=== PATIENT | male | born 1980 | race African-American/Black ===

== ENCOUNTER 2018-11-06 16:59 | Inpatient (IN) | payer OTHER ==
[2018-11-06] MEDS ORDERED: KETOROLAC 30 MG/ML 1 ML VIAL IVP STA (17:22)
--- NOTE | 2018-11-06 17:25 | ED ---
Chest Pain HPI - General Chief Complaint: Chest Pain Stated Complaint: chest pain Time Seen by Provider: 11/06/18 17:10 Source: patient, RN notes reviewed Mode of arrival: wheelchair Limitations: no limitations - History of Present Illness Initial Comments: This is a 37-year-old male with a benign past medical history but a personal family history of heart disease his dad that he is 65 he's not sure when his heart disease started as he was adopted and did not meet his real father and told to before he passed on. He states he did have an on-and-off for the last several months left-sided chest pain on and off symptoms chills heavy today he presents with complaints of left-sided chest pain it radiates to his arm. 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 He does not recall a particular incidence the may have hurt his chest or arm. He is a former smoker he quit several months ago. He denies any other fevers chills nausea vomiting sweats or other symptoms at this time. MD Complaint: chest pain - Related Data Home Medications Medication Instructions Recorded Confirmed No Known Home Medications 11/06/18 11/06/18 Allergies Allergy/AdvReac Type Severity Reaction Status Date / Time No Known Allergies Allergy Verified 11/06/18 17:22 Review of Systems ROS Statement: Those systems with pertinent positive or pertinent negative responses have been documented in the HPI. ROS Other: All systems not noted in ROS Statement are negative. EKG Findings - EKG Results: EKG: interpreted by CLIFTON, sinus rhythm (Sinus rhythm of 82. [place] interval 188 QRS duration 108 QT since QTC 380/[address]-T wave changes.) Past Medical History Past Medical History: No Reported History History of Any Multi-Drug Resistant Organisms: None Reported Past Surgical History: No Surgical Hx Reported Past Psychological History: No Psychological Hx Reported Smoking Status: Former smoker Past Alcohol Use History: Occasional Past Drug Use History: Marijuana General Exam - General Exam Comments Initial Comments: This is a well-developed well-nourished awake alert oriented 3 male Limitations: no limitations General appearance: alert, in no apparent distress Head exam: Present: atraumatic, normocephalic, normal inspection Eye exam: Present: normal appearance, PERRL, EOMI. Absent: scleral icterus, conjunctival injection, periorbital swelling ENT exam: Present: normal exam, mucous membranes moist Neck exam: Present: normal inspection, full ROM, other (No stridor JVD or bruits). Absent: tenderness, meningismus, lymphadenopathy Respiratory exam: Present: normal lung sounds bilaterally, chest wall tenderness (Tennis palpation over the left costal sternal margin no step-off or crepitation). Absent: respiratory distress, wheezes, rales, rhonchi, stridor Cardiovascular Exam: Present: regular rate, normal rhythm, normal heart sounds. Absent: systolic murmur, diastolic murmur, rubs, gallop, clicks GI/Abdominal exam: Present: soft, normal bowel sounds. Absent: distended, tenderness, guarding, rebound, rigid Extremities exam: Present: normal inspection, full ROM, normal capillary refill. Absent: tenderness, pedal edema, joint swelling, calf tenderness Back exam: Present: normal inspection Neurological exam: Present: alert, oriented X3, CN II-XII intact Psychiatric exam: Present: normal affect, normal mood Skin exam: Present: warm, dry, intact, normal color. 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 ] Respiratory 18 18 Rate Blood Pressure 149/101 138/93 O2 Sat by Pulse 98 97 Oximetry 11/06/18 11/06/18 11/06/18 18:11 18:36 19:33 Temperature 97.8 F Pulse Rate 75 89 69 Pulse Rate [ Project Landscape Architect ] Respiratory 18 18 18 Rate Blood Pressure 134/94 130/88 143/97 O2 Sat by Pulse 97 95 99 Oximetry 11/06/18 20:22 Temperature Pulse Rate 72 Pulse Rate [ Project Landscape Architect ] Respiratory 22 Rate Blood Pressure 151/87 O2 Sat by Pulse 99 Oximetry - Reevaluation(s) Reevaluation #1: 11/06/18 21:52 Repeat EKG shows sinus rhythm a 70 186 years duration 108 daily since QTC 392/423 some evidence of incomplete left bundle-branch block configuration appears be consistent with a first EKG Chest Pain MDM - MDM I did review the imaging and report no acute findings. Patient persists in having chest pain though it does appear to be noncardiac. I did discuss case with him and Dr. Plata who did come the emergency department see the patient he will be admitted for further evaluation. Disposition Clinical Impression: Atypical chest pain Disposition: ADMITTED IP TO THIS HOSP Condition: Fair Referrals: None,Stated [Primary Care Provider] - 1-2 days
[2018-11-06 17:33] LABS: Basophils % (A) 1 %; Eosinophils # (A) 0.1 k/uL (0-0.7); Eosinophils % (A) 2 %; HCT 50.4 % (39.0-53.0); HGB 17.2 gm/dL (13.0-17.5); Lymphocytes # (A) 1.7 k/uL (1.0-4.8); Lymphocytes % (A) 22 %; Mean Platelet Volume 6.9; Monocytes # (A) 0.4 k/uL (0-1.0); Monocytes % (A) 6 %; Neutrophils # (A) 5.4 k/uL (1.3-7.7); Neutrophils % (A) 69 %; Platelet Count 335 k/uL (150-450); RBC 5.73 m/uL (4.30-5.90); RDW 14.6 % (11.5-15.5); WBC 7.8 k/uL (3.8-10.6)
[2018-11-06 17:46] LABS: D-Dimer <0.17 mg/L FEU (<0.60); INR 0.9 (<1.2); Partial Thromboplastin Time 23.1 sec (22.0-30.0); Prothrombin Time 9.8 sec (9.0-12.0)
[2018-11-06 17:48] LABS: ALT 58 U/L (21-72); AST 43 U/L (17-59); African American GFR (CKD) >90 (>60 ml/min/1.73 sqM); Albumin 5.2 g/dL (3.5-5.0); Alkaline Phosphatase 101 U/L (38-126); Anion Gap 13 mmol/L; Blood Urea Nitrogen 13 mg/dL (9-20); Calcium 10.3 mg/dL (8.4-10.2); Carbon Dioxide 23 mmol/L (22-30); Chloride 106 mmol/L (98-107); Creatine Kinase 227 U/L (55-170); Glucose 112 mg/dL (74-99); Magnesium 2.2 mg/dL (1.6-2.3); Potassium 4.2 mmol/L (3.5-5.1); Sodium 142 mmol/L (137-145); Total Bilirubin 0.4 mg/dL (0.2-1.3); Total Protein 8.9 g/dL (6.3-8.2)
--- NOTE | 2018-11-06 17:50 | XR ---
EXAMINATION TYPE: XR chest 2V DATE OF EXAM: 11/06/2018 COMPARISON: None HISTORY: 37-year-old male with chest pain TECHNIQUE: PA and lateral views FINDINGS: Heart is normal size. Aorta and pulmonary vasculature are within normal limits. Mild interstitial pro minence without consolidation or pleural effusion. IMPRESSION: Mild interstitial prominence could reflect bronchitis or asthma.
[2018-11-06] MEDS ORDERED: NITROGLYCERIN SL TABS 0.4 MG TAB SUBLINGUAL STA (18:09)
[2018-11-06] MEDS ORDERED: SODIUM CHLORIDE 0.9% 1,000 ML IV STA (18:38)
[2018-11-06] MEDS ORDERED: ORPHENADRINE 30 MG/ML 2 ML VIAL IVP STA (18:38)
[2018-11-06] MEDS ORDERED: methylPREDNISolone SOD SUCCI 125 MG/2 ML VIAL IV STA (20:05)
[2018-11-06] MEDS ORDERED: HYDROmorphone 1 MG/ML 1 ML SYRINGE IVP STA (20:05)
[2018-11-06] MEDS ORDERED: MAG HYDROX/AL HYDROX/SIMETH 30 ML, HYOSCYAMINE ELIXIR 10 ML, CIMETIDINE HCL 300 MG, LID... PO STA ×4 (21:33)
[2018-11-06] MEDS ORDERED: HEPARIN SODIUM,PORCINE 5,000 UNIT/ML 1 ML VIAL IV ONE (22:57)
[2018-11-06] MEDS ORDERED: NITROGLYCERIN SL TABS 0.4 MG TAB SUBLINGUAL PRN (22:57)
[2018-11-06] MEDS ORDERED: HEPARIN SOD,PORK IN 0.45% NACL 25,000 UNIT in 0.45% NACL 1 250ML.BAG IV SCH (23:00)
[2018-11-06] MEDS: SODIUM CHLORIDE 0.9% 1,000 ML IV SCH (23:13)
[2018-11-06 23:50] VITALS: BMI 31.5
[2018-11-06] MEDS: NITROGLYCERIN OINT 1 INCH/GM PACKET TOPICAL SCH (23:54)
--- NOTE | 2018-11-07 00:33 | P.HPIM ---
History of Present Illness H&P Date: 11/06/18 Chief Complaint: Chest pain 37-year-old male with history of IBS Patient presented to the hospital with complaint of chest pain he reports that for the past year he's been having left-sided chest discomfort described it as sharp pain on the left side of his chest he never gave it any attention goes away on its own however today while he was watching TV he experienced pain 8 out of 10 in severity radiating to the left arm was associated with some nausea but no vomiting he felt faint and weak denies any shortness of breath denies any palpitations but reports some chills he denies any coughing patient reports that pain increases with deep breath and moving around. Patient never had any cardiac episodes in the past. He reports that his is adopted however he met his dad who was 65 years old and reported history of coronary artery disease and possible CABG patient reports that his dad couple weeks ago from heart attack Patient otherwise denies any fevers denies any vomiting denies any abdominal pain denies any GI bleeding or belly pain. In the ED initial workup was unremarkable EKG showed no acute ST changes Troponins negative Chest x-ray overall unremarkable Patient quit smoking 3 months ago he occasionally drinks Patient will be admitted for chest pain to rule out acute coronary syndrome Review of Systems Pertinent positives as noted in HPI. All other systems were reviewed and are negative Past Medical History Past Medical History: No Reported History History of Any Multi-Drug Resistant Organisms: None Reported Past Surgical History: No Surgical Hx Reported Past Anesthesia/Blood Transfusion Reactions: No Reported Reaction Past Psychological History: No Psychological Hx Reported Smoking Status: Former smoker Past Alcohol Use History: Occasional Past Drug Use History: Marijuana - Past Family History Father Family Medical History: Myocardial Infarction ([place]) Additional Family Medical History / Comment(s): 2014 of cardiac arrest. had open heart in the past Medications and Allergies Home Medications Medication Instructions Recorded Confirmed Type No Known Home Medications 11/06/18 11/06/18 History Allergies Allergy/AdvReac Type Severity Reaction Status Date / Time No Known Allergies Allergy Verified 11/06/18 17:22 Physical Exam Vitals: Vital Signs Temp Pulse Pulse Resp BP BP Pulse Ox 11/06/18 23:42 98.0 F 75 18 162/80 96 11/06/18 20:22 72 22 151/87 99 11/06/18 19:33 97.8 F 69 18 143/97 99 11/06/18 18:36 89 18 130/88 95 11/06/18 18:11 75 18 134/94 97 11/06/18 17:18 87 18 138/93 97 11/06/18 17:16 82 11/06/18 17:02 97.9 F 96 18 149/101 98 Intake and Output 11/06/18 11/06/18 11/07/18 14:59 22:59 06:59 Other: # Voids 1 Weight 113.398 kg Constitutional: No acute distress, conversant, pleasant Eyes: Anicteric sclerae, moist conjunctiva, no lid-lag Pupils equal round reactive to light ENMT: NC/AT Oropharynx clear, no erythema, or exudates Neck: Supple, FROM, no masses, or JVD No carotid bruits No thyromegaly Lungs: Clear to auscultation Clear to percussion Normal respiratory effort, no accessory muscle use Cardiovascular: Heart regular in rate and rhythm, , pain is not re producible upon palpation of the chest No murmurs, gallops, or rubs No peripheral edema Abdominal: Soft Nontender, no guarding, rebound or rigidity Abdomen moving with respiration Normoactive bowel sounds No hepatomegaly, No splenomegaly No palpable mass No abdominal wall hernia noted Skin: Normal temperature, tone, texture, turgor No induration No subcutaneous nodules No rash, lesions No ulcers Extremities: No digital cyanosis No clubbing Pedal pulses intact and symmetrical Radial pulses intact and symmetrical No calf tenderness Psychiatric: Alert and oriented to person, place and time Appropriate affect fair judgment Neuro Muscles Strength 5/5 in all 4 extremities Sensation to light touch grossly present throughout Cranial nerves II-XII grossly intact No focal sensory deficits Lymphatics: no palpable cervical or supraclavicular , or inguinal lymph nodes Results CBC & Chem 7: 11/06/18 17:15 11/06/18 17:15 Labs: Abnormal Lab Results - Last 24 Hours (Table) 11/06/18 Range/Units 17:15 Glucose 112 H (74-99) mg/dL Calcium 10.3 H (8.4-10.2) mg/dL Creatine Kinase 227 H (55-170) U/L Total Protein 8.9 H (6.3-8.2) g/dL Albumin 5.2 H (3.5-5.0) g/dL Thrombosis Risk Factor Assmnt - Choose All That Apply Any of the Below Risk Factors Present?: Yes Each Factor Represents 1 point: Obesity (BMI >25) Other Risk Factors: No Other congenital or acquired thrombophilia - If yes, enter type in comment: No Thrombosis Risk Factor Assessment Total Risk Factor Score: 1 Thrombosis Risk Factor Assessment Level: Low Risk Assessment and Plan Assessment: 37-year-old male no significant past medical history admitted under observation with anticipated length of stay less than 2 midnights due to chest pain to rule out acute coronary syndrome Plan: Atypical chest pain rule out acute coronary syndrome Trend troponins Cardiac enzymes color television console monitor Cardiology consult Pain control Aspirin Patient was started on heparin drip in the ED CODE STATUS: Full code Discussed with: Patient, ER, RN Anticipated length of stay less than [address]: Home A total of 60 minutes was spent on the care of this complex patient more than 50% of the time was spent in counseling and care coordination.
[2018-11-07] MEDS: HYDROmorphone 1 MG/ML 1 ML SYRINGE IVP PRN ×3 (01:20→08:36)
[2018-11-07 06:01] LABS: Cholesterol 229 mg/dL (<200); HDL Cholesterol 52 mg/dL (40-60); LDL Cholesterol,Calculated 167 mg/dL (0-99); Triglycerides 50 mg/dL (<150)
[2018-11-07] MEDS: NITROGLYCERIN OINT 1 INCH/GM PACKET TOPICAL SCH (06:23)
[2018-11-07] MEDS ORDERED: ASPIRIN 325 MG TAB PO SCH (09:00)
[2018-11-07] MEDS: METOPROLOL TARTRATE 12.5 MG TAB PO SCH (10:20)
[2018-11-07] MEDS: amLODIPine 2.5 MG TAB PO SCH (10:20)
--- NOTE | 2018-11-07 15:34 | P.PN ---
Subjective Progress Note Date: 11/07/18 Patient seen and examined and follow-up, continues to complain of left-sided chest pressure, denies any shortness of breath. Patient reports family history of premature heart disease. EKG negative for any suggestion of any acute ischemia, troponins are negative 3. Blood pressure has been elevated otherwise no acute events overnight Objective - Vital Signs Vital signs: Vital Signs Temp 98.3 F 11/07/18 11:47 Pulse 87 11/07/18 11:47 Resp 17 11/07/18 12:00 BP 157/79 11/07/18 11:47 Pulse Ox 92 L 11/07/18 11:47 Intake & Output 11/06/18 11/07/18 11/07/18 18:59 06:59 18:59 Intake Total 65.167 Balance 65.167 Weight 113.398 kg 117.4 kg Intake: Intake, IV Titration 65.167 Amount Heparin Sod,Pork in 0.45% 65.167 NaCl 25,000 unit In 0.45 % NaCl 1 250ml.bag @ 8 UNITS/KG/HR 9.072 mls/hr IV .Q24H [facility] Rx#: [id number] Other: Voiding Method Toilet Toilet # Voids 1 - Exam Constitutional: No acute distress, conversant, pleasant Eyes: Anicteric sclerae, moist conjunctiva, no lid-lag, PERRLA ENMT: NC/AT,Oropharynx clear, no erythema, exudates Neck:Supple, FROM, no masses, or JVD, No carotid bruits; No thyromegaly Lungs: Clear to auscultation, Clear to percussion, Normal respiratory effort, no accessory muscle use Cardiovascular: Heart regular in rate and rhythm, No murmurs, gallops, or rubs no peripheral edema Abdominal: Soft Nontender, nom distended, no guarding, no rebound or rigidity, Normoactive bowel sounds No hepatomegaly, No splenomegaly, No palpable mass No abdominal wall hernia noted Skin: Normal temperature, tone, texture, turgor, No induration No subcutaneous nodules, No rash, lesions, No ulcers Extremities:No digital cyanosis No clubbing, Pedal pulses intact and symmetrical Radial pulses intact and symmetrical Normal gait and station, No calf tenderness Psychiatric: Alert and oriented to person, place and time, Appropriate affect Intact judgement Neuro: Muscles Strength 5/5 in all 4 extremities, Sensation to light touch grossly present throughout, Cranial nerves II-XII grossly intact. No focal sensory deficits - Labs CBC & Chem 7: 11/06/18 17:15 11/06/18 17:15 Labs: Abnormal Lab Results - Last 24 Hours (Table) 11/06/18 11/07/18 Range/Units 17:15 05:29 Glucose 112 H (74-99) mg/dL Calcium 10.3 H (8.4-10.2) mg/dL Creatine Kinase 227 H (55-170) U/L Total Protein 8.9 H (6.3-8.2) g/dL Albumin 5.2 H (3.5-5.0) g/dL Cholesterol 229 H (<200) mg/dL LDL Cholesterol, Calc 167 H (0-99) mg/dL Assessment and Plan (1) Atypical chest pain Narrative/Plan: * Continue routine chest pain orders * Continue aspirin, agree with discontinuing Dilaudid * Continue aspirin and metoprolol and Norvasc * Patient scheduled for stress test and echocardiogram tomorrow Current Visit: Yes Status: Acute Code(s): R07.89 - OTHER CHEST PAIN SNOMED Code(s): 178373537 (2) Elevated blood pressure reading Narrative/Plan: Continue blood pressure regimen as above * Continue to monitor closely * Current Visit: Yes Status: Acute Code(s): R03.0 - ELEVATED BLOOD-PRESSURE READING, W/O DIAGNOSIS OF HTN SNOMED Code(s): 36825854 (3) Family history of coronary artery disease Current Visit: Yes Status: Acute Code(s): Z82.49 - FAMILY HX OF ISCHEM HEART DIS AND OTH DIS OF THE CIRC SYS SNOMED Code(s): 133911649 Plan: Disposition * Anticipated discharge 1 day
[2018-11-07] MEDS: HEPARIN SODIUM,PORCINE 5,000 UNIT/ML 1 ML VIAL SQ SCH (20:08)
[2018-11-07] MEDS: SODIUM CHLORIDE 0.9% 1,000 ML IV SCH (20:36)
[2018-11-07] MEDS ORDERED: NITROGLYCERIN SL TABS 0.4 MG TAB SUBLINGUAL PRN (20:37)
--- NOTE | 2018-11-07 20:47 | CONS ---
CONSULTATION Patrick Peterson is a 37-year-old gentleman without past medical history. He smokes about a pack a day. Lives in the [place] area. Visits [place] on and off. He may have hypertension, but he has not taken any medicines regularly. He is here with episode of chest pain which he describes as sharp in nature, comes when he moves his hand and the quality of the pain is very musculoskeletal and does not suggest angina. EKG is unremarkable. Troponins are unremarkable. EKG revealed normal sinus rhythm. Repeat EKG revealed some minor IVCD type picture. Chest x-ray was unremarkable. There is some suggestion of some bronchitis type picture. At the time of my evaluation he is relatively comfortable but the pain appears to be sharp. He does quite a bit of construction work. Quality of pain seems musculoskeletal. PAST MEDICAL HISTORY: Unremarkable for any major medical problems. The patient's coronary risk factors, smoking is his major risk factor. He does not have any family history of premature CAD. He also uses marijuana. Does not have hypertension documented or diabetes. Blood pressure was slightly elevated today. MEDICATIONS: None. ALLERGIES: None. PHYSICAL EXAMINATION: Blood pressure is 150/78, pulse rate is about 80 per minute, regular. HEENT unremarkable. Fundus was not examined by me. Neck is supple. No JVD. I do not hear a carotid bruit. There is no thyromegaly. Heart exam reveals S1, S2 heard normally in all areas without a rub, murmur or gallop. Lungs are clear. Abdomen is soft, nontender. Lower extremities reveal normal pulses. No edema. Central nervous system is normal. EKG revealed sinus mechanism with mild IVCD. No acute changes. IMPRESSION: 1. Atypical chest pain. 2. Probably labile hypertension. 3. No evidence to suggest any ongoing myocardial ischemia. RECOMMENDATION: I am recommending that we discontinue nitro paste, put him on subcu heparin, discontinue IV heparin. I will perform an echo and a stress echo tomorrow and if normal, he can be discharged. I gave him the option of going home and having it done as outpatient, but the patient wishes to stay back and have the testing done. I will start him on amlodipine 2.5 mg daily, metoprolol tartrate 12.5 mg daily. Discussed my thoughts in detail with the patient. Thank you very much for the consult. MMODL / IJN: [id number] /
[2018-11-07] MEDS: ALPRAZolam 0.25 MG TAB PO PRN (20:48)
[2018-11-07] MEDS: MORPHINE SULFATE 2 MG/ML SYRINGE IVP PRN (20:48)
[2018-11-08] MEDS: MORPHINE SULFATE 2 MG/ML SYRINGE IVP PRN ×2 (02:04→06:46)
[2018-11-08] MEDS: ALPRAZolam 0.25 MG TAB PO PRN (06:50)
--- NOTE | 2018-11-08 08:59 | P.PN ---
Progress Note - Text Progress Note Date: 11/08/18 This is a pleasant 38-year-old gentleman who was admitted to the hospital with chest discomfort and was seen by Dr. Cavazos yesterday. The patient was ruled out for acute coronary event. A stress test was advised. On follow-up with the patient today, he still have mild chest tightness. He is going to undergo a stress test this morning. We'll continue following up with the patient.
[2018-11-08] MEDS ORDERED: ASPIRIN 81 MG PO SCH (09:00)
--- NOTE | 2018-11-08 09:44 | P.PN ---
Progress Note - Text Progress Note Date: 11/08/18 The patient was brought downstairs to undergo a stress test. The assessment before the stress test revealed that he was having chest discomfort about 8/10 in intensity and he cannot walk on the treadmill. Because of that I did advise the patient to undergo a coronary angiogram for definitive diagnosis. He does have significant family history of coronary artery disease with his father. I did speak with Dr. Cavazos who is going to do a heart catheterization on this gentleman this morning.
[2018-11-08] MEDS ORDERED: ATORVASTATIN 80 MG TAB PO STA (09:46)
[2018-11-08] MEDS ORDERED: SODIUM CHLORIDE 0.9% 1,000 ML in EMPTY BAG 1 BAG IV ONE (09:46)
[2018-11-08] MEDS ORDERED: ASPIRIN 325 MG TAB PO STA (09:46)
[2018-11-08] MEDS ORDERED: NITROGLYCERIN SL TABS 0.4 MG TAB SUBLINGUAL PRN (09:46)
[2018-11-08] MEDS: HEPARIN SODIUM,PORCINE 5,000 UNIT/ML 1 ML VIAL SQ SCH (10:10)
[2018-11-08] MEDS: METOPROLOL TARTRATE 12.5 MG TAB PO SCH (10:11)
[2018-11-08] MEDS: amLODIPine 2.5 MG TAB PO SCH (10:11)
[2018-11-08] MEDS ORDERED: IPRATROPIUM-ALBUTEROL 3 ML NEB INHALATION PRN (10:14)
--- NOTE | 2018-11-08 11:01 | ECHOF ---
Referral Reason: MEASUREMENTS -------- HEIGHT: 162.6 cm WEIGHT: 117.0 kg BP: RVIDd: 3.0 cm (< 3.3) IVSd: 1.3 cm (0.6 - 1.1) LVIDd: 5.1 cm (3.9 - 5.3) LVPWd: 1.3 cm (0.6 - 1.1) IVSs: 1.7 cm LVIDs: 3.2 cm LVPWs: 1.6 cm LA Diam: 3.6 cm (2.7 - 3.8) LAESV Index (A-L): 20.77 ml/m Ao Diam: 3.6 cm (2.0 - 3.7) AV Cusp: 2.4 cm (1.5 - 2.6) LA Diam: 4.2 cm (2.7 - 3.8) MV EXCURSION: 19.089 mm (> 18.000) MV EF SLOPE: 84 mm/s (70 - 150) EPSS: 0.3 cm MV E Jose: 0.71 m/s MV DecT: 231 ms MV A Jose: 0.64 m/s MV E/A Ratio: 1.12 RAP: 5.00 mmHg RVSP: 10.17 mmHg FINDINGS -------- Sinus rhythm. This was a technically good study. The left ventricular size is normal. There is mild concentric left ventricular hypertrophy. Overa ll left ventricular systolic function is normal with, an EF between 55 - 60 %. The right ventricle is normal in size. The left atrial size is normal. The right atrial size is normal. The aortic valve is trileaflet, and appears structurally normal. No aortic stenosis or regurgitation. Mild mitral regurgitation is present. Mild tricuspid regurgitation present. There is no evidence of pulmonary hypertension. The right v entricular systolic pressure, as measured by Doppler, is 10.17mmHg. There is no pulmonic regurgitation present. The aortic root size is normal. There is no pericardial effusion. CONCLUSIONS -------- 1. Sinus rhythm. 2. This was a technically good study. 3. The left ventricular size is normal. 4. There is mild concentric left ventricular hypertrophy. 5. Overall left ventricular systolic function is normal with, an EF between 55 - 60 %. 6. The right ventricle is normal in size. 7. The left atrial size is normal. 8. The right atrial size is normal. 9. The aortic valve is trileaflet, and appears structurally normal. No aortic stenosis or regurgitati on. 10. Mild mitral regurgitation is present. 11. Mild tricuspid regurgitation present. 12. There is no evidence of pulmonary hypertension. 13. The right ventricular systolic pressure, as measured by Doppler, is 10.17mmHg. 14. There is no pulmonic regurgitation present. 15. The aortic root size is normal. 16. There is no pericardial effusion. FERRYBOAT DECKHAND: Cori Marr RDCS
[2018-11-08] MEDS ORDERED: ACETAMINOPHEN TAB 325 MG TAB PO PRN (11:42)
[2018-11-08] MEDS ORDERED: LIDOCAINE 1% INJ 10MG/ML (20 ML MDV) ONE (13:12)
[2018-11-08] MEDS ORDERED: LIDOCAINE 1% INJ 10MG/ML (20 ML MDV) SQ ONE (13:28)
[2018-11-08] MEDS ORDERED: MIDAZOLAM (PF) 2 MG/2 ML VIAL IV ONE (13:32)
[2018-11-08] MEDS ORDERED: SODIUM CHLORIDE 0.9% 500 ML 500 ML IV ONE (13:34)
[2018-11-08] MEDS ORDERED: IOPAMIDOL-370 100ML BTL INJ ONE (13:40)
[2018-11-08] MEDS ORDERED: SODIUM CHLORIDE 0.9% 1,000 ML IV SCH (14:00)
[2018-11-08] MEDS ORDERED: methylPREDNISolone SOD SUCCI 125 MG/2 ML VIAL IV STA (14:22)
--- NOTE | 2018-11-08 14:37 | P.DS ---
Providers Date of admission: 11/08/18 10:03 Expected date of discharge: 11/08/18 Attending physician: Zabrina Harris MD Consults: 11/06/18 22:57 Consult Physician Urgent Consulting Provider: Jim Mark Consult Reason/Comments: Atypical chest pain Do you want consulting provider notified?: Yes, Notify in am Primary care physician: Stated None - Discharge Diagnosis(es) (1) Atypical chest pain Current Visit: Yes Status: Acute (2) Elevated blood pressure reading Current Visit: Yes Status: Acute (3) Family history of coronary artery disease Current Visit: Yes Status: Acute Hospital Course: The patient is a 38-year-old male that was admitted with atypical chest pain with a strong family history of coronary disease that was placed on observation to rule out ACS, the patient has a long history of smoking and had reportedly been sprayed in his face with bug repellent prior to presentation. Workup with a EKG showed normal sinus rhythm without any suggestion of acute ischemia, chest x-ray was unremarkable, initial and subsequent troponins were negative. The patient continues to have ongoing chest discomfort and was unable to proceed with stress testing the patient was seen by cardiology and recommended to have a left heart catheterization. Echocardiogram showed preserved LV EF of 55-60% without any significant valvular abnormalities. Left heart cath was normal revealing normal coronaries. The patient was subsquently discharged in stable condition and instructed to follow up with cardiology. Focused exam CV: RRR, no murmurs, rubs or gallops, no JVD Resp: diminished in the bases, CTA Patient Condition at Discharge: Fair Plan - Discharge Summary Discharge Rx Participant: No New Discharge Prescriptions: Continue No Known Home Medications Discharge Medication List No Known Home Medications 11/06/18 [History] Follow up Appointment(s)/Referral(s): Awilda Cavazos MD [STAFF PHYSICIAN] - 11/11/18 2:30 pm None,Stated [Primary Care Provider] - 1-2 days Discharge Disposition: HOME SELF-CARE
--- NOTE | 2018-11-08 14:39 | CC ---
CARDIAC CATHETERIZATION REPORT DATE OF SERVICE: 11/08/2018 PROCEDURE: Left heart catheterization, coronary angiography. PERFORMED BY: Dr. Philomena Cavazos. Moderate conscious sedation time was 16 minutes. Patient was administered Versed. His oxygen saturation, hemodynamics and EKG were monitored closely. CLINICAL INFORMATION: Mr. Patrick Peterson came into the hospital with episode of chest pain, which seemed very atypical and musculoskeletal but pain persisted in spite of pain medications and IV heparin and nitroglycerin. He was advised coronary angiography after a scheduled stress test could not be performed because of persistent chest pain. He went to the stress lab and continued to complain of heavy chest discomfort with a lot of anxiety and therefore he was advised coronary angiography. I discussed with the patient the rationale, risks, benefits, and options. He understood all details and wished to proceed with the procedure. PROCEDURE NOTE: Under local anesthesia and strict aseptic precautions, a 6-Irish introducer was placed in the right femoral artery. Using standard Amy catheters, I performed coronary angiography and the same right Amy catheter was used to check LV pressure but LV gram was not performed. The sheath was taken out and Angio-Seal device used to secure hemostasis and he was sent to the room in stable condition. CARDIAC CATHETERIZATION FINDINGS: The left end-diastolic pressure was 8-9 mmHg without any gradient across the aortic valve. RIGHT CORONARY ARTERY: This is a large dominant disease-free vessel that bifurcates into large PLV and a smaller PDA. This vessel has minor irregularities, no significant disease. PLV is again a large branch that subdivides into 2 branches, supplies a sizable amount of myocardium. No significant disease in the super dominant RCA. LEFT MAIN CORONARY ARTERY: Short, patent, disease-free vessel that bifurcates into LAD and circumflex. LEFT ANTERIOR DESCENDING CORONARY ARTERY: Good caliber vessel, extends along the anterior wall, gives off septal and diagonal branches, runs all the way to the apex supplying a sizable amount of myocardium. The distal LAD has some diffuse narrowing, but I think this is a natural tapering of the vessel. No significant disease in the LAD. LEFT POSTERIOR CIRCUMFLEX CORONARY ARTERY: A nondominant vessel, gives off a single obtuse marginal that runs laterally, have minor irregularities, no significant disease. FINAL IMPRESSION: This patient has normal filling pressures. No gradient across the aortic valve, a super dominant RCA, which is free of significant disease and LAD and circumflex which are also free of significant disease. By echocardiogram, his LV function was normal. RECOMMENDATIONS: Findings were discussed with the patient. There was no family members available. He can be discharged later on today. Advised to be on the medications that he is currently on, which include Norvasc and metoprolol tartrate. He can be discharged at about 7:30 or 8:00 pm today if he remains stable and I will see him in the office this Wednesday. MMODL / IJN: [id number] /
--- NOTE | 2018-11-08 15:02 | XR ---
EXAMINATION TYPE: XR chest 1V portable DATE OF EXAM: 11/08/2018 COMPARISON: NONE HISTORY: Shortness of breath TECHNIQUE: Single frontal view of the chest is obtained. FINDINGS: There is no focal air space opacity, pleural effusion, or pneumothorax seen. Heart size is mildly prominent. No overt failure. No pleural effusion. Hypertrophic change of the spine. IMPRESSION: Correlate for mild cardiomegaly
[2018-11-08 15:41] VITALS: PULSE 86; RESP 17; TEMP 97.9
[2018-11-08 16:20] VITALS: BP 152/77
[2018-11-08 17:22] LABS: Glucose,Whole Blood 111 mg/dL (75-99)
[2018-11-09] MEDS ORDERED: ASPIRIN 81 MG PO SCH (09:00)
== END 2018-11-08 20:20 | disposition home or self-care (01) | DRG 287 ==
LOC: EC 16:59 → 3SCARD 22:59 → 1SOBS 11-07 07:55 → OBSVTOIN 11-08 10:03
PROVIDERS: ADMIT Internal Medicine; ATTEND Internal Medicine
PROC: B2111ZZ Fluoroscopy of Multiple Coronary Arteries using Low Osmolar Contrast (ICD-10-PCS; 2018-11-08)
PROC: 4A023N7 Measurement of Cardiac Sampling and Pressure, Left Heart, Percutaneous Approach (ICD-10-PCS; principal; 2018-11-08 13:05)
DX: R07.89 Other chest pain (principal); K58.9 Irritable bowel syndrome, unspecified; R03.0 Elevated blood-pressure reading, without diagnosis of hypertension; Z87.891 Personal history of nicotine dependence; Z82.41 Family history of sudden cardiac death; Z82.49 Family history of ischemic heart disease and other diseases of the circulatory system
CPT/HCPCS: 36415; 71045; 71046; 80053; 80061; 82550; 83690; 83735; 83880; 84484; 85025; 85379; 85610; 85730; 93005; 93306; 93458; 94640; 96361; 96365; 96375; 96376; 99285